=== PATIENT | female | born 1980 | race Caucasian/White ===

== ENCOUNTER 2021-11-12 07:30 | Emergency (ER) | payer BC ==
[~2021-11-12] VITALS: Ht 152.4 cm; Wt 74.8 kg
== END 2021-11-12 09:01 | disposition home or self-care (01) ==
LOC: FSED 07:52
DX: S60.221A Contusion of right hand, initial encounter (principal); W22.8XXA Striking against or struck by other objects, initial encounter; Y93.H9 Activity, other involving exterior property and land maintenance, building and construction; Y92.016 Swimming-pool in single-family (private) house or garden as the place of occurrence of the external cause; F17.290 Nicotine dependence, other tobacco product, uncomplicated
CPT/HCPCS: 99283

== ENCOUNTER 2022-06-08 08:53 | Emergency (ER) | payer BC ==
[~2022-06-08] VITALS: Ht 152.4 cm; Wt 86.2 kg
[2022-06-08] MEDS ORDERED: AMOX TR-K CLV1 EAC2 PO (09:23)
[2022-06-08] MEDS ORDERED: VENTOLIN HFA18 GM INH (09:23)
[2022-06-08] MEDS ORDERED: FLONASE ALLERG9.9 ML INH (09:23)
[2022-06-08] MEDS ORDERED: BROMFED DM COU118 ML PO (09:23)
[2022-06-08] MEDS ORDERED: MEDROL4 MG PO (09:23)
== END 2022-06-08 09:30 | disposition home or self-care (01) ==
LOC: FSED 08:59
DX: J32.9 Chronic sinusitis, unspecified (principal); R05.9 Cough, unspecified; F17.210 Nicotine dependence, cigarettes, uncomplicated
CPT/HCPCS: 99282